=== PATIENT | male | born 2000 | race Caucasian/White ===

== ENCOUNTER 2023-02-12 06:12 | Day surgery (SDC) | payer BC ==
[2023-02-07 16:03] VITALS: BMI 22.0
[~2023-02-12 06:12] MED LIST: LACTATED RINGERS 1,000 ML IV SCH; LIDOCAINE 1% (10MG/ML) FOR IV START INTRADERMA PRN
[2023-02-12 06:36] VITALS: TEMP 97.5
[2023-02-12] MEDS ORDERED: LIDOCAINE 2% INJ 20 MG/ML (2 ML VIAL) ONE (07:00)
[2023-02-12] MEDS ORDERED: PROPOFOL 10 MG/ML 20 ML VIAL IV ONE (07:00)
--- NOTE | 2023-02-12 07:25 | P.PCN ---
Date of Procedure: 02/12/23 Procedure(s) Performed: Brief history: Patient is a pleasant 23-year-old white male scheduled for an elective upper endoscopy as well as colonoscopy as a part of evaluation of recent episode of acute GI bleed. He had 2 days of hematemesis followed by melena for 4 days diagnosis abdominal pain, nausea vomiting. Since then he is been having chronic intermittent diarrhea with occasional epigastric discomfort. Procedure performed: Esophagogastroduodenoscopy with biopsy Colonoscopy with biopsy Preoperative diagnosis: History of GI bleed/abdominal pain and chronic diarrhea Anesthesia: MAC Procedure: After informed consent was obtained from the patient was brought into the endoscopy unit and IV sedation was administered by anesthesia under continuous monitoring. Initially upper endoscopy was done. The Olympus GF 160 video endoscope was inserted inserted into the mouth and esophagus intubated without any difficulty and was gradually advanced into the stomach and duodenum and carefully examined. The bulb and second part of the duodenum appeared normal. Biopsies were done from the duodenum to rule out celiac disease. The scope was then withdrawn into the stomach adequately insufflated with air and upon careful examination the antrum had mild gastritis and biopsies were done from this area. Mucosa ofardia and fundus appeared normal. The scope was then withdrawn into the esophagus. The GE junction was located at 40 cm to the incisors. small hiatal hernia noted. There was a 5 mm probably Layne's appearing mucosa just proximal to the GE junction which was biopsied. Rest of the esophagus appeared normal. Patient tolerated the procedure well. At this time the patient continued to remain sedation. Initial digital rectal examination was normal. Olympus CF 160 video colonoscope was then inserted into the rectum and gradually advanced to the cecum without any difficulty. Careful examination was performed as the scope was gradually being withdrawn. The prep was excellent. terminal ileum was intubated and 20 cm visualized and appeared normal. The cecum, ascending colon, transverse colon, descending colon, sigmoid colon and rectum appeared normal. Random biopsies were done from ascending and descending colon from rule out microscopic/collagenous colitis. Retroflexion was performed in the rectum and no lesions were noted. Patient tolerated the procedure well. Impression: 1. Upper endoscopy revealed mild antral gastritis, small hiatal hernia and short segment Layne's esophagus 2. Colonoscopy was within normal limits with no evidence of colitis or colorectal neoplasia Recommendations: Findings of this examination were discussed with the patient as well as his family. He was advised to follow with the biopsy results. Follow up in office as needed.
[2023-02-12 07:47] VITALS: BP 110/75; PULSE 85; RESP 14
== END 2023-02-12 08:16 | disposition home or self-care (01) ==
LOC: ORWHC2ENDO 06:12
PROVIDERS: ATTEND Internal Medicine Gastroenterology
DX: K29.50 Unspecified chronic gastritis without bleeding (principal); K44.9 Diaphragmatic hernia without obstruction or gangrene; K20.90 Esophagitis, unspecified without bleeding; K22.70 Barrett's esophagus without dysplasia; Z88.5 Allergy status to narcotic agent; Z98.890 Other specified postprocedural states
CPT/HCPCS: 88305; 45380; 43239; J2704; J2001

== ENCOUNTER 2023-03-18 07:03 | Day surgery (SDC) | payer BC ==
[~2023-03-18 07:03] MED LIST changes: +ACETAMINOPHEN TAB 500 MG TAB PO PRN; +HEPARIN SODIUM,PORCINE/PF 5,000 UNIT/0.5 ML SYRINGE SQ PRN; -LACTATED RINGERS 1,000 ML IV SCH; -LIDOCAINE 1% (10MG/ML) FOR IV START INTRADERMA PRN
[2023-03-18] MEDS ORDERED: LIDOCAINE 1% (10MG/ML) FOR IV START INTRADERMA PRN (07:16)
[2023-03-18] MEDS ORDERED: ONDANSETRON 4 MG/2 ML VIAL IVP ONE (07:16)
[2023-03-18] MEDS ORDERED: HYDROmorphone 0.5 MG/0.5 ML SYRINGE IVP PRN (07:16)
[2023-03-18] MEDS ORDERED: METOCLOPRAMIDE 5 MG/ML 2 ML VIAL IVP PRN (07:16)
[2023-03-18] MEDS ORDERED: DEXAMETHASONE SOD PHOSPHATE 4 MG/ML 1 ML VIAL IV ONE (07:16)
[2023-03-18] MEDS ORDERED: ONDANSETRON 4 MG/2 ML VIAL ONE (07:21)
[2023-03-18] MEDS: LACTATED RINGERS 1,000 ML IV SCH (07:43)
[2023-03-18 08:05] LABS: Basophils % (A) 1 %; Eosinophils # (A) 0.5 k/uL (0-0.7); Eosinophils % (A) 6 %; HCT 47.6 % (39.0-53.0); HGB 15.8 gm/dL (13.0-17.5); Lymphocytes # (A) 1.7 k/uL (1.0-4.8); Lymphocytes % (A) 20 %; MCH 28.8 pg (25.0-35.0); MCHC 33.3 g/dL (31.0-37.0); MCV 86.5 fL (80.0-100.0); Mean Platelet Volume 8.2; Monocytes # (A) 0.3 k/uL (0-1.0); Monocytes % (A) 4 %; Neutrophils # (A) 5.6 k/uL (1.3-7.7); Neutrophils % (A) 68 %; Platelet Count 248 k/uL (150-450); RBC 5.51 m/uL (4.30-5.90); WBC 8.3 k/uL (3.8-10.6)
[2023-03-18] MEDS ORDERED: HYDROmorphone (PF) 1 MG/ML ONE (08:32)
[2023-03-18] MEDS ORDERED: PROPOFOL 10 MG/ML 20 ML VIAL IV ONE (08:32)
[2023-03-18] MEDS ORDERED: ROCURONIUM 10 MG/ML (5 ML VIAL) IV ONE (08:32)
[2023-03-18] MEDS ORDERED: SUGAMMADEX SODIUM 200 MG/2 ML SDV IV ONE (08:32)
[2023-03-18] MEDS ORDERED: KETOROLAC 15 MG/ML 1 ML VIAL ONE (08:32)
[2023-03-18] MEDS ORDERED: MIDAZOLAM 2 MG/2 ML VIAL ONE (08:32)
[2023-03-18] MEDS ORDERED: SUCCINYLCHOLINE CHLORIDE 200 MG/10 ML VIAL IV ONE (08:32)
[2023-03-18] MEDS ORDERED: fentaNYL (PF) 50 MCG/ML 2 ML AMP ONE (08:32)
[2023-03-18] MEDS ORDERED: LIDOCAINE 1%-EPI 1:100,000 50 ML VIAL SQ ONE ×2 (08:55→08:59)
[2023-03-18] MEDS ORDERED: LACTATED RINGERS 1,000 ML IV ONE ×2 (09:23→09:33)
[2023-03-18] MEDS ORDERED: NALOXONE 0.4 MG/ML 1 ML VIAL IV PRN (09:33)
[2023-03-18] MEDS ORDERED: HYDROmorphone 1 MG/ML 1 ML SYRINGE IVP PRN (09:33)
[2023-03-18] MEDS ORDERED: ACETAMINOPHEN TAB 325 MG TAB PO PRN (09:33)
[2023-03-18] MEDS ORDERED: ONDANSETRON 4 MG/2 ML VIAL IVP PRN (09:33)
[2023-03-18] MEDS ORDERED: HYDROcodone/APAP 5-325MG 1 EACH TAB PO PRN (09:33)
--- NOTE | 2023-03-18 17:22 | P.OP ---
Date of Procedure: 03/18/23 Preoperative Diagnosis: GERD Postoperative Diagnosis: GERD Hiatal hernia Procedure(s) Performed: Laparoscopic Romaine fundal plication Anesthesia: GAURI Surgeon: Marco A Arias Estimated Blood Loss (ml): 5 Pathology: none sent Condition: stable Disposition: PACU Description of Procedure: The patient was placed on the operating table in the supine position. The patient received general anesthesia. And was placed in dorsal lithotomy position. The patient was prepped and draped in the usual sterile fashion. The skin incision sites were anesthetized with 1% local Xylocaine. The skin was incised in the left periumbilical area and then using a blade less 5 mm trocar u nder direct visualization panel cavity was entered. After adequate insufflation the laparoscope was then placed into the peritoneal cavity. Next a 5 mm trochars placed in the right epigastric position. Another 5 millimeter trocar the right lateral position. Another 5 millimeter trocar in the left lateral position a 5 mm trocar is placed in the left epigastric position. And then the initial 5 mm trocar was exchanged for a 10 mm trocar. The left lateral lobe liver was retracted. The hernia was seen. The crural defect was then dissected using the Harmonic scissors device. A 360 crural dissection was performed the esophagus stomach was reduced back into the peritoneal Cavity. The crural defect was then closed using 2-0 Ethibond suture. Next the fundus of the stomach was mobilized using the [place] scissors device. and then a 58-Welsh bougie dilator was placed oropharynx passed into the esophagus and stomach the fundal plication wrap was then performed by grasping the fundus posteriorly and bringing it around the esophagus and stomach fundoplication was then performed using 2-0 Ethibond suture. Care was taken that the fundal location rested over top of the intra-abdominal esophagus. There was no injury seen to the stomach or esophagus. The dilator was then withdrawn. The abdomen was irrigated there is no bleeding seen. The trochars were then withdrawn and then skin incision sites were closed using 3-0 Monocryl suture Steri-Strips are applied. Patient thought procedure well and sent to recovery room in stable condition.
[2023-03-18] MEDS: KETOROLAC 15 MG/ML 1 ML VIAL IVP SCH ×2 (17:23→23:53)
[2023-03-18] MEDS: HYDROcodone/APAP 5-325MG 1 EACH TAB PO PRN ×2 (17:24→22:53)
[2023-03-19] MEDS: LACTATED RINGERS 1,000 ML IV SCH (00:45)
[2023-03-19] MEDS: KETOROLAC 15 MG/ML 1 ML VIAL IVP SCH ×2 (06:18→11:52)
[2023-03-19] MEDS ORDERED: ENOXAPARIN 40 MG/0.4 ML SYRINGE SQ SCH (09:00)
[2023-03-19 10:20] VITALS: BP 121/78; PULSE 85; RESP 18; TEMP 98.7
--- NOTE | 2023-03-19 12:07 | P.DS ---
Providers Expected date of discharge: 03/19/23 Attending physician: Marco A Arias Consults: 03/18/23 09:33 Consult Physician Routine Consulting Provider: Ernst Lloyd Consult Reason/Comments: Medical Do you want consulting provider notified?: Yes Primary care physician: Chio Goss Hospital Course: Discharge diagnosis 1. GERD and hiatal hernia status post Romaine fundoplication Hospital course This is a 23-year-old male with a known history of GERD and hiatal hernia. He is status post Romaine fundoplication. He tolerated surgery well. Pain controlled. Tolerating diet. He has been up and ambulating. He is having flatus. He is afebrile. Incision sites clean dry and intact. He is stable for discharge. Please refer to chart for any further details. Physician Environmental Services Tech note has been reviewed by physician. Signing provider agrees with the documented findings, assessment, and plan of care. Patient Condition at Discharge: Stable Plan - Discharge Summary Discharge Rx Participant: No New Discharge Prescriptions: New Acetaminophen Tab [Tylenol Tab] 650 mg PO Q4H PRN #30 tablet PRN Reason: Pain oxyCODONE HCL [OxyIR] 5 mg PO Q6H PRN 3 Days #12 tab PRN Reason: Pain Continue Omeprazole [PriLOSEC] 10 mg PO DAILY Discharge Medication List Omeprazole [PriLOSEC] 10 mg PO DAILY 03/18/23 [History] Acetaminophen Tab [Tylenol Tab] 650 mg PO Q4H PRN #30 tablet 03/19/23 [Rx] oxyCODONE HCL [OxyIR] 5 mg PO Q6H PRN 3 Days #12 tab 03/19/23 [Rx] Follow up Appointment(s)/Referral(s): Marco A Arias MD [STAFF PHYSICIAN] - 1 Week Activity/Diet/Wound Care/Special Instructions: No driving while taking OxyIR No lifting over 10 pounds Shower daily. No soaking or tub baths for 2 weeks Very light activity until you are reevaluated at your follow up appointment with your surgeon Continue a full liquid diet for the next 2 weeks No straws or carbonated beverages Discharge Disposition: HOME SELF-CARE
--- NOTE | 2023-03-19 14:09 | P.CONS ---
History of Present Illness - Reason for Consult Consult date: 03/19/23 Medical management anxiety Requesting physician: Marco A Arias - Chief Complaint Gastroesophageal reflux - History of Present Illness Assessment 23-year-old gentleman with past medical history significant for gastroesophageal reflux disease, reported hiatal hernia, gastritis, anxiety, depression, marijuana use status Romaine fundoplication. Tolerated surgery well. Pain controlled, reports minimal burning at surgical sites. He ambulated, tolerated exertion well. Positive flatus. Denies chest pain, palpitations or shortness of breath. Maintaining O2 sats in the high 90s on 2 L nasal cannula. Afebrile. Review of Systems Constitutional: Denied any fatigue denied any fever. Cardio vascular: denied any chest pain, palpitations Gastrointestinal denied any nausea vomiting Pulmonary: Denied any shortness of breath cough Neurologic denied any new focal deficits All inpatient medications were reviewed and appropriate changes in these medications as dictated in the interval history and assessment and plan. Past Medical History Past Medical History: GERD/Reflux Additional Past Medical History / Comment(s): recently vomiting blood, stomach pain , gastritis History of Any Multi-Drug Resistant Organisms: None Reported Past Surgical History: Adenoidectomy Additional Past Surgical History / Comment(s): wisdom teeth, colonoscopy, egd, Past Anesthesia/Blood Transfusion Reactions: No Reported Reaction Smoking Status: Never smoker Medications and Allergies Home Medications Medication Instructions Recorded Confirmed Type Omeprazole [PriLOSEC] 10 mg PO DAILY 03/18/23 03/18/23 History Acetaminophen Tab [Tylenol Tab] 650 mg PO Q4H PRN #30 tablet 03/19/23 Rx oxyCODONE HCL [OxyIR] 5 mg PO Q6H PRN 3 Days #12 tab 03/19/23 Rx Allergies Allergy/AdvReac Type Severity Reaction Status Date / Time No Known Allergies Allergy Verified 03/18/23 07:38 Physical Exam Vitals: Vital Signs Temp Pulse Pulse Pulse Resp BP Pulse Ox 03/19/23 07:59 99 03/19/23 07:49 98.7 F 85 18 121/78 96 03/19/23 02:07 98 F 70 16 93/59 99 03/18/23 19:30 98.6 F 81 18 122/74 96 03/18/23 15:36 98.2 F 104 H 18 124/83 96 03/18/23 15:00 97 18 130/82 98 03/18/23 14:00 103 H 20 128/80 97 03/18/23 13:30 96 20 119/73 96 03/18/23 13:00 108 H 20 116/73 97 03/18/23 12:30 96 16 124/74 98 03/18/23 12:00 106 H 16 114/65 99 03/18/23 11:31 16 129/75 97 03/18/23 11:16 97 16 127/71 97 Intake and Output 03/18/23 03/19/23 03/19/23 22:59 06:59 14:59 Intake Total 125 Balance 125 Intake: Intake, IV Titration 125 Amount Lactated Ringers 1,000 ml 125 @ 125 mls/hr IV .Q8H ONE Rx#:[id number] Other: Voiding Method Toilet # Voids 1 PHYSICAL EXAM: VITAL SIGNS: [As above] GENERAL: Alert and oriented 3 ,Sitting up in bed, no acute distress. HEENT: Normocephalic, Conjunctivae normal. eyes normal. NECK: Supple, No JVD. CARDIOVASCULAR: S1, S2 regular. No murmur RESPIRATION: Breath sounds diminished in the bases. No rhonchi or crackles. No bronchial breathing. ABDOMEN: Soft, status post surgery ,No guarding. +BS. LEGS: No edema. no swelling NERVOUS SYSTEM: Cranial N 2-12 grossly normal. No focal deficits. Strength and sensation grossly intact. Skin: Warm and dry, no rash Results CBC & Chem 7: 03/18/23 07:52 Assessment and Plan Assessment: Gastroesophageal reflux disease with reported hiatal hernia status post Romaine fundoplication Postoperative atelectasis. Plan: Continue on current medication regime ,monitoring and symptomatic treatment. Patient has been encouraged to increase ambulation. Aggressive pulmonary toileting with incentive spirometer ordered. Diet/pain management as per primary. Discharge planning in progress. Follow up with PCP in one week. The impression and plan of care has been dictated as directed. : I performed a history and examination of this patient, discussed the same with the dictator. I agree with the dictator's note ,documented as a scribe. Any additional findings or plans will be noted.
== END 2023-03-19 12:53 | disposition home or self-care (01) ==
LOC: OR 07:03 → EDSTATUS 08:25 → 5NMEDONC 09:26 → OR 03-19 12:53
PROVIDERS: ATTEND Surgery
DX: K21.00 Gastro-esophageal reflux disease with esophagitis, without bleeding (principal); K44.9 Diaphragmatic hernia without obstruction or gangrene; F41.9 Anxiety disorder, unspecified; F32.A Depression, unspecified; F12.90 Cannabis use, unspecified, uncomplicated; Z90.49 Acquired absence of other specified parts of digestive tract; Z98.890 Other specified postprocedural states; Z79.899 Other long term (current) drug therapy
CPT/HCPCS: 94760; 85025; 43280; J1100; J0690; J2405; J1650; J1885 ×2; J1644